=== PATIENT | female | born 1955 | race Caucasian/White ===

== ENCOUNTER 2024-06-28 13:46 | Inpatient (IN) | payer OTHER ==
[2024-06-28 15:44] LABS: HEMATOCRIT 37.7 % (32.4-45.2); HEMOGLOBIN 12.2 GM/dL (10.7-15.3); MCH 28.2 pg (25.7-33.7); MCHC 32.4 g/dl (32.0-36.0); MEAN CELL VOLUME 87.1 fl (80-96); MEAN PLT VOLUME 8.7 fl (7.5-11.1); PLATELET COUNT 286 10^3/uL (134-434); RBC 4.32 M/mm3 (3.60-5.2); RDW 15.7 % (11.6-15.6); VENOUS O2 SATURATION 35.6 % (70-80); VENOUS PCO2 44.7 mmHg (38-52); VENOUS PH 7.442 (7.310-7.410)
[2024-06-28 15:47] LABS: WHITE BLOOD COUNT 37.8 K/mm3 (4.0-10.0)
[2024-06-28 15:52] LABS: INR 1.48 (0.83-1.09); PROTHROMBIN TIME (PATIENT) 16.8 SEC (9.7-13.0)
[2024-06-28 16:12] LABS: POTASSIUM 3.7 mmol/L (3.5-5.1)
[2024-06-28 16:14] LABS: ALBUMIN 2.4 g/dl (3.4-5.0); CALCIUM 9.5 mg/dL (8.5-10.1)
[2024-06-28 16:18] LABS: BILIRUBIN,TOTAL 0.8 mg/dL (0.2-1); CREATININE 1.1 mg/dL (0.55-1.3); TOT PROT 6.1 g/dl (6.4-8.2)
[2024-06-28] MEDS: METOPROLOL TARTRATE 50 MG TABLET (FP) PO SCH (16:50)
[2024-06-28 16:51] LABS: ANISOCYTOSIS 1+; MACROCYTOSIS 0; OVALOCYTE 1+
[2024-06-28] MEDS ORDERED: ACETAMINOPHEN INJECTION 100 ML ONE (17:06)
[2024-06-28] MEDS: ACETAMINOPHEN 1000 MG/100 ML BAG IVPB ONE ×2 (17:15→20:18)
[2024-06-28] MEDS: SODIUM CHLORIDE 0.9% 500 ML INFUS.BAG IV ONE (17:16)
[2024-06-28] MEDS ORDERED: VANCOMYCIN 1 GM PREMIX (F) 1 GM/200 ML BAG ONE (17:43)
[2024-06-28] MEDS: VANCOMYCIN 1 GM PREMIX (F) 1 GM/200 ML BAG IVPB ONE (18:10)
[2024-06-28] MEDS: LACTATED RINGERS SOLUTION 1,000 ML/1,000 ML INFUS.BAG IV SCH (18:10)
[2024-06-28] MEDS ORDERED: PIPERACILLIN/TAZOB 4.5 GM 4.5 GM/100 ML BAG IVPB ONE (19:30)
[2024-06-28] MEDS: PIPERACILLIN/TAZOB 4.5 GM 4.5 GM in DEXTROSE 5%-WATER 100 ML IVPB SCH (19:42)
[2024-06-28] MEDS: METOPROLOL TARTRATE 5 MG/5 ML VIAL IVPUSH ONE (20:10)
[2024-06-29 07:50] LABS: HEMATOCRIT 37.1 % (32.4-45.2); HEMOGLOBIN 12.1 GM/dL (10.7-15.3); MCH 28.7 pg (25.7-33.7); MCHC 32.7 g/dl (32.0-36.0); MEAN PLT VOLUME 8.9 fl (7.5-11.1); PLATELET COUNT 247 10^3/uL (134-434); RBC 4.22 M/mm3 (3.60-5.2); RDW 15.4 % (11.6-15.6)
[2024-06-29 08:00] LABS: WHITE BLOOD COUNT 38.6 K/mm3 (4.0-10.0)
[2024-06-29 08:09] LABS: CALCIUM 9.4 mg/dL (8.5-10.1); POTASSIUM 3.1 mmol/L (3.5-5.1)
[2024-06-29 08:10] LABS: BLOOD UREA NITROGEN 24.9 mg/dL (7-18)
[2024-06-29] MEDS ORDERED: amLODIPine BESYLATE 5 MG TABLET (FP) PO SCH (10:00)
[2024-06-29 10:21] LABS: ANISOCYTOSIS 0; MACROCYTOSIS 0; OVALOCYTE 1+
[2024-06-29] MEDS: APIXABAN 2.5 MG TABLET PO SCH (11:00)
[2024-06-29] MEDS: PIPERACILLIN/TAZOB 4.5 GM 4.5 GM in DEXTROSE 5%-WATER 100 ML IVPB SCH (11:02)
[2024-06-29] MEDS: METOPROLOL TARTRATE 50 MG TABLET (FP) PO SCH (11:02)
[2024-06-29] MEDS: VANCOMYCIN/WATER FOR INJ (PEG) 1,000 MG/200 ML BAG IVPB SCH (11:02)
[2024-06-29] MEDS: NAPH,MB-DB/K PH,MBDB POWDER PACKET PO ONE (11:03)
[2024-06-29] MEDS ORDERED: ALBUTEROL SO4 2.5/IPRATROPIUM 0.5 INH SOL 3 ML VIAL.NEB. NEB PRN (15:33)
[2024-06-29 17:42] LABS: BF WBC & OTHER NUCLEATED CELLS 1356 /mm3
[2024-06-29] MEDS: POTASSIUM CHLORIDE TABS 20 MEQ TABLET.ER (FP) PO ONE ×2 (18:36→18:38)
[2024-06-29] MEDS: LACTATED RINGERS SOLUTION 1,000 ML/1,000 ML INFUS.BAG IV SCH (18:36)
[2024-06-29 20:15] LABS: BODY FLUID MACROPHAGES 9 %; BODY FLUID MESOTHELIAL 2 %; BODY FLUID MONOCYTE 6 %; BODYL FLD EOSINOPHIL 3 %
[2024-06-30 07:44] LABS: BASO % 0.6 % (0-2.0); EOS % 4.4 % (0-4.5); HEMATOCRIT 35.6 % (32.4-45.2); HEMOGLOBIN 11.7 GM/dL (10.7-15.3); MCH 28.8 pg (25.7-33.7); MCHC 32.9 g/dl (32.0-36.0); MEAN CELL VOLUME 87.7 fl (80-96); MONO % 5.4 % (3.8-10.2); NEUT % 87.6 % (42.8-82.8); PLATELET COUNT 224 10^3/uL (134-434); RBC 4.06 M/mm3 (3.60-5.2); RDW 15.6 % (11.6-15.6)
[2024-06-30 07:53] LABS: POTASSIUM 3.5 mmol/L (3.5-5.1)
[2024-06-30 07:57] LABS: CALCIUM 9.1 mg/dL (8.5-10.1); MAGNESIUM 2.1 mg/dL (1.8-2.4)
[2024-06-30 07:58] LABS: BLOOD UREA NITROGEN 17.9 mg/dL (7-18)
[2024-06-30 08:00] LABS: CREATININE 0.8 mg/dL (0.55-1.3)
[2024-06-30 08:01] LABS: PHOSPHOROUS 3.1 mg/dL (2.5-4.9)
[2024-06-30 08:02] LABS: TOT PROT 5.2 g/dl (6.4-8.2)
[2024-06-30 08:07] LABS: BILIRUBIN,TOTAL 0.8 mg/dL (0.2-1)
[2024-06-30 10:37] LABS: ANISOCYTOSIS 1+; MACROCYTOSIS 1+; OVALOCYTE 1+
[2024-06-30 10:42] LABS: WHITE BLOOD COUNT 38.9 K/mm3 (4.0-10.0)
[2024-06-30] MEDS: ACETAMINOPHEN 1000 MG/100 ML BAG IVPB PRN (19:50)
[2024-07-01] MEDS: APIXABAN 2.5 MG TABLET PO SCH (05:36)
[2024-07-01 08:12] LABS: HEMATOCRIT 34.5 % (32.4-45.2); HEMOGLOBIN 10.9 GM/dL (10.7-15.3); MCH 27.9 pg (25.7-33.7); MCHC 31.6 g/dl (32.0-36.0); MEAN CELL VOLUME 88.5 fl (80-96); MEAN PLT VOLUME 9.1 fl (7.5-11.1); PLATELET COUNT 234 10^3/uL (134-434); RDW 15.6 % (11.6-15.6)
[2024-07-01 08:20] LABS: POTASSIUM 3.5 mmol/L (3.5-5.1)
[2024-07-01 08:25] LABS: WHITE BLOOD COUNT 35.7 K/mm3 (4.0-10.0)
[2024-07-01 08:30] LABS: ALBUMIN 1.9 g/dl (3.4-5.0); CALCIUM 9.4 mg/dL (8.5-10.1)
[2024-07-01 08:31] LABS: CREATININE 0.7 mg/dL (0.55-1.3)
[2024-07-01 08:32] LABS: TOT PROT 5.3 g/dl (6.4-8.2)
[2024-07-01 15:10] LABS: BODY FLUID ALBUMIN 1.8 g/dL (Not Estab.)
[2024-07-01] MEDS: ALBUTEROL SO4 2.5/IPRATROPIUM 0.5 INH SOL 3 ML VIAL.NEB. NEB SCH (15:40)
[2024-07-02 07:12] LABS: HEMATOCRIT 35.7 % (32.4-45.2); HEMOGLOBIN 11.1 GM/dL (10.7-15.3); MCH 27.8 pg (25.7-33.7); MCHC 31.2 g/dl (32.0-36.0); MEAN CELL VOLUME 89.1 fl (80-96); MEAN PLT VOLUME 9.5 fl (7.5-11.1); PLATELET COUNT 300 10^3/uL (134-434); RBC 4.01 M/mm3 (3.60-5.2); RDW 15.6 % (11.6-15.6)
[2024-07-02 07:30] LABS: POTASSIUM 3.6 mmol/L (3.5-5.1)
[2024-07-02 07:39] LABS: BLOOD UREA NITROGEN 21.6 mg/dL (7-18)
[2024-07-02 07:44] LABS: CREATININE 0.9 mg/dL (0.55-1.3)
[2024-07-02 07:45] LABS: BILIRUBIN,TOTAL 0.9 mg/dL (0.2-1); TOT PROT 5.6 g/dl (6.4-8.2)
[2024-07-02 09:21] LABS: ANISOCYTOSIS 0; HELMET CELLS 0; HOWELL-JOLLY BODIES 0; MACROCYTOSIS 0; OVALOCYTE 0; ROULEAU 0; SICKELED CELLS 0; TARGET CELLS 0; TEAR DROP CELLS 0; TOXIC GRANULATION 0
[2024-07-02] MEDS ORDERED: RAPID SEQUENCE INTUBATION KIT NR ONE (22:51)
[2024-07-02] MEDS ORDERED: FENTANYL NS IVPB 500 MCG/100 ML BAG IVPB ONE (23:30)
[2024-07-02] MEDS: FENTANYL NS IVPB 500 MCG/100 ML BAG IVPB SCH (23:35)
[2024-07-02] MEDS: DEXMEDETOMIDINE PREMIX 400 MCG/100 ML BAG IVPB SCH (23:35)
[2024-07-03 01:02] LABS: HEMATOCRIT 30.6 % (32.4-45.2); HEMOGLOBIN 9.7 GM/dL (10.7-15.3); MCHC 31.6 g/dl (32.0-36.0); MEAN CELL VOLUME 88.7 fl (80-96); MEAN PLT VOLUME 8.9 fl (7.5-11.1); PLATELET COUNT 244 10^3/uL (134-434); RBC 3.45 M/mm3 (3.60-5.2); RDW 15.7 % (11.6-15.6); WHITE BLOOD COUNT 18.5 K/mm3 (4.0-10.0)
[2024-07-03 01:06] LABS: EPI CELLS >36 /uL (0-25.1); HYALINE CASTS 5 /uL (0-3.1); URINE APPEARANCE TURBID; URINE BILIRUBIN NEGATIVE (NEGATIVE); URINE COLOR YELLOW; URINE GLUCOSE (UA) NEGATIVE (NEGATIVE); URINE KETONE NEGATIVE (NEGATIVE); URINE LEUK ESTERASE NEGATIVE (NEGATIVE); URINE NITRITE NEGATIVE (NEGATIVE); URINE PROTEIN 2+ (NEGATIVE); URINE RBC 14 /uL (0-23.9)
[2024-07-03 01:22] LABS: INR 2.11 (0.83-1.09); PROTHROMBIN TIME (PATIENT) 23.7 SEC (9.7-13.0)
[2024-07-03 01:31] LABS: POTASSIUM 3.7 mmol/L (3.5-5.1)
[2024-07-03 01:34] LABS: ALBUMIN 1.7 g/dl (3.4-5.0); BLOOD UREA NITROGEN 26.1 mg/dL (7-18); CALCIUM 9.5 mg/dL (8.5-10.1); MAGNESIUM 2.4 mg/dL (1.8-2.4)
[2024-07-03 01:37] LABS: CREATININE 0.9 mg/dL (0.55-1.3)
[2024-07-03 01:38] LABS: PHOSPHOROUS 2.8 mg/dL (2.5-4.9)
[2024-07-03 01:39] LABS: BILIRUBIN,TOTAL 0.7 mg/dL (0.2-1); TOT PROT 4.9 g/dl (6.4-8.2)
[2024-07-03 01:43] LABS: ARTERIAL BLD GAS O2 SATURATION 99.4 % (95-98); ARTERIAL BLOOD GAS BASE EXCESS 0.7 mmol/L (-2-2); ARTERIAL BLOOD GAS PO2 201.5 mmHg (80-100); ARTERIAL BLOOD GAS pH 7.392 (7.350-7.450)
[2024-07-03 01:45] LABS: ALLENS TEST POSITIVE
[2024-07-03] MEDS: ROCURONIUM BROMIDE 50 MG/5 ML VIAL IV ONE (01:45)
[2024-07-03] MEDS: ETOMIDATE 40 MG/20 ML VIAL IVPUSH ONE (01:45)
[2024-07-03 01:46] LABS: PT'S TEMP 102.7; VENT MODE A/C; VENT RATE 20
[2024-07-03] MEDS: NOREPINEPHRINE 0.9 % NACL 8 MG/250 ML BAG IVPB SCH (01:46)
[2024-07-03 01:47] LABS: ANISOCYTOSIS 2+; MACROCYTOSIS 0
[2024-07-03] MEDS: OSELTAMIVIR PHOSPHATE 75 MG CAPSULE GT SCH (03:38)
[2024-07-03] MEDS: HYDROCORTISONE SOD SUCCINATE 100 MG/2 ML VIAL IVPUSH SCH (03:38)
[2024-07-03 04:04] LABS: URINE BACTERIA 4.7 /uL (0-1359); URINE WBC 57.6 /uL (0-25.8); YEAST FEW (NEGATIVE)
[2024-07-03] MEDS: VASopressin 40 UNITS/100 ML BAG IV SCH (04:18)
[2024-07-03] MEDS ORDERED: PROPOFOL 1,000,000 MCG/100 ML VIAL ONE (04:36)
[2024-07-03] MEDS: PROPOFOL 1,000,000 MCG/100 ML VIAL IVPB SCH (04:45)
[2024-07-03 07:58] LABS: HEMATOCRIT 33.2 % (32.4-45.2); HEMOGLOBIN 10.7 GM/dL (10.7-15.3); MCH 28.3 pg (25.7-33.7); MCHC 32.1 g/dl (32.0-36.0); MEAN CELL VOLUME 88.2 fl (80-96); MEAN PLT VOLUME 9.3 fl (7.5-11.1); PLATELET COUNT 279 10^3/uL (134-434); RBC 3.77 M/mm3 (3.60-5.2); RDW 15.3 % (11.6-15.6); WHITE BLOOD COUNT 21.2 K/mm3 (4.0-10.0)
[2024-07-03 08:06] LABS: POTASSIUM 3.8 mmol/L (3.5-5.1)
[2024-07-03 08:07] LABS: INR 2.13 (0.83-1.09); PROTHROMBIN TIME (PATIENT) 23.5 SEC (9.7-13.0)
[2024-07-03 08:19] LABS: ALBUMIN 1.8 g/dl (3.4-5.0); CALCIUM 9.9 mg/dL (8.5-10.1)
[2024-07-03 08:20] LABS: BLOOD UREA NITROGEN 27.5 mg/dL (7-18); MAGNESIUM 2.5 mg/dL (1.8-2.4)
[2024-07-03 08:22] LABS: CREATININE 0.9 mg/dL (0.55-1.3); PHOSPHOROUS 2.4 mg/dL (2.5-4.9)
[2024-07-03 08:24] LABS: BILIRUBIN,TOTAL 0.8 mg/dL (0.2-1); TOT PROT 5.4 g/dl (6.4-8.2)
[2024-07-03 10:15] LABS: ANISOCYTOSIS 0; MACROCYTOSIS 0
[2024-07-03] MEDS: MUPIROCIN 2% TOPICAL OINTMENT FOR DECOLONIZATION NS SCH (10:30)
[2024-07-03] MEDS: FLUDROCORTISONE ACETATE 0.1 MG TABLET (FP) NGT SCH (10:30)
[2024-07-03] MEDS: DEXMEDETOMIDINE PREMIX 400 MCG/100 ML BAG IVPB SCH (15:51)
[2024-07-03] MEDS: FENTANYL NS IVPB 500 MCG/100 ML BAG IVPB SCH (18:29)
[2024-07-03] MEDS: PIPERACILLIN/TAZOB 4.5 GM 4.5 GM in DEXTROSE 5%-WATER 100 ML IVPB SCH (18:29)
[2024-07-03] MEDS: ALBUTEROL SO4 2.5/IPRATROPIUM 0.5 INH SOL 3 ML VIAL.NEB. NEB SCH (20:05)
[2024-07-03] MEDS: VANCOMYCIN/WATER FOR INJ (PEG) 1,000 MG/200 ML BAG IVPB SCH (20:42)
[2024-07-03] MEDS: APIXABAN 2.5 MG TABLET PO SCH (22:09)
[2024-07-03] MEDS: CHLORHEXIDINE GLUCONATE 4% CLEANSER FOR DECOLONIZATION TP SCH (22:09)
[2024-07-03] MEDS: METOPROLOL TARTRATE 50 MG TABLET (FP) PO SCH (22:09)
[2024-07-04] MEDS: ACETAMINOPHEN 1000 MG/100 ML BAG IVPB PRN (00:41)
[2024-07-04 07:46] LABS: HEMATOCRIT 32.9 % (32.4-45.2); HEMOGLOBIN 10.3 GM/dL (10.7-15.3); MCH 27.8 pg (25.7-33.7); MCHC 31.2 g/dl (32.0-36.0); MEAN PLT VOLUME 9.4 fl (7.5-11.1); PLATELET COUNT 307 10^3/uL (134-434); RBC 3.69 M/mm3 (3.60-5.2); RDW 15.3 % (11.6-15.6); WHITE BLOOD COUNT 24.6 K/mm3 (4.0-10.0)
[2024-07-04 07:54] LABS: POTASSIUM 3.7 mmol/L (3.5-5.1)
[2024-07-04 08:03] LABS: CALCIUM 10.2 mg/dL (8.5-10.1)
[2024-07-04 08:04] LABS: ALBUMIN 1.8 g/dl (3.4-5.0); BLOOD UREA NITROGEN 27.3 mg/dL (7-18); CREATININE 0.8 mg/dL (0.55-1.3); MAGNESIUM 2.5 mg/dL (1.8-2.4); PHOSPHOROUS 2.3 mg/dL (2.5-4.9)
[2024-07-04 08:06] LABS: BILIRUBIN,TOTAL 0.5 mg/dL (0.2-1); TOT PROT 5.2 g/dl (6.4-8.2)
[2024-07-04] MEDS: POTASSIUM PHOSPHATE 15 MM in SODIUM CHLORIDE 100 ML IVPB ONE (13:00)
[2024-07-04] MEDS: VANCOMYCIN 1 GM PREMIX (F) 1,000 MG/200 ML BAG IVPB SCH (22:23)
[2024-07-05 08:08] LABS: HEMOGLOBIN 10.2 GM/dL (10.7-15.3); MCH 27.6 pg (25.7-33.7); MCHC 31.1 g/dl (32.0-36.0); MEAN CELL VOLUME 88.8 fl (80-96); MEAN PLT VOLUME 9.5 fl (7.5-11.1); PLATELET COUNT 325 10^3/uL (134-434); RBC 3.71 M/mm3 (3.60-5.2); RDW 15.5 % (11.6-15.6)
[2024-07-05 08:11] LABS: POTASSIUM 3.6 mmol/L (3.5-5.1)
[2024-07-05 08:13] LABS: CALCIUM 10.1 mg/dL (8.5-10.1)
[2024-07-05 08:14] LABS: ALBUMIN 1.7 g/dl (3.4-5.0); BLOOD UREA NITROGEN 27.9 mg/dL (7-18); MAGNESIUM 2.3 mg/dL (1.8-2.4)
[2024-07-05 08:17] LABS: CREATININE 0.8 mg/dL (0.55-1.3); PHOSPHOROUS 2.4 mg/dL (2.5-4.9)
[2024-07-05 08:19] LABS: BILIRUBIN,TOTAL 0.5 mg/dL (0.2-1); TOT PROT 5.1 g/dl (6.4-8.2)
[2024-07-05 08:25] LABS: WHITE BLOOD COUNT 33.2 K/mm3 (4.0-10.0)
[2024-07-05] MEDS: HYDROCORTISONE SOD SUCCINATE 100 MG/2 ML VIAL IVPUSH SCH (11:16)
[2024-07-05] MEDS: POTASSIUM PHOSPHATE 30 MM in DEXTROSE 5%-WATER - 500 ML IVPB ONE (18:00)
[2024-07-06 06:53] LABS: POTASSIUM 3.9 mmol/L (3.5-5.1)
[2024-07-06 06:55] LABS: HEMATOCRIT 33.2 % (32.4-45.2); HEMOGLOBIN 10.6 GM/dL (10.7-15.3); MCHC 32.1 g/dl (32.0-36.0); MEAN CELL VOLUME 87.3 fl (80-96); MEAN PLT VOLUME 9.4 fl (7.5-11.1); PLATELET COUNT 285 10^3/uL (134-434); RDW 15.6 % (11.6-15.6)
[2024-07-06 06:57] LABS: CALCIUM 10.6 mg/dL (8.5-10.1)
[2024-07-06 06:58] LABS: ALBUMIN 1.7 g/dl (3.4-5.0); BLOOD UREA NITROGEN 31.4 mg/dL (7-18); MAGNESIUM 2.2 mg/dL (1.8-2.4)
[2024-07-06 06:59] LABS: WHITE BLOOD COUNT 39.5 K/mm3 (4.0-10.0)
[2024-07-06 07:01] LABS: CREATININE 0.8 mg/dL (0.55-1.3); PHOSPHOROUS 3.1 mg/dL (2.5-4.9)
[2024-07-06 07:02] LABS: BILIRUBIN,TOTAL 0.6 mg/dL (0.2-1)
[2024-07-06] MEDS ORDERED: morphine SULFATE 4 MG/ML VIAL IVPUSH PRN (08:14)
[2024-07-06 09:13] LABS: ANISOCYTOSIS 0; MACROCYTOSIS 0
[2024-07-06] MEDS ORDERED: ACETAMINOPHEN INJECTION 100 ML ONE (13:19)
[2024-07-06] MEDS ORDERED: DEXMEDETOMIDINE IN 0.9 % NACL 200 MCG/50 ML EACH IVPB SCH (22:00)
[2024-07-07 06:51] LABS: HEMATOCRIT 34.3 % (32.4-45.2); HEMOGLOBIN 10.6 GM/dL (10.7-15.3); MCH 27.3 pg (25.7-33.7); MCHC 30.8 g/dl (32.0-36.0); MEAN CELL VOLUME 88.5 fl (80-96); PLATELET COUNT 226 10^3/uL (134-434); RBC 3.88 M/mm3 (3.60-5.2); RDW 15.1 % (11.6-15.6)
[2024-07-07 06:59] LABS: WHITE BLOOD COUNT 41.9 K/mm3 (4.0-10.0)
[2024-07-07 07:17] LABS: CALCIUM 11.5 mg/dL (8.5-10.1)
[2024-07-07 07:18] LABS: ALBUMIN 1.6 g/dl (3.4-5.0); BLOOD UREA NITROGEN 43.7 mg/dL (7-18)
[2024-07-07 07:21] LABS: CREATININE 1.3 mg/dL (0.55-1.3)
[2024-07-07 07:22] LABS: BILIRUBIN,TOTAL 0.7 mg/dL (0.2-1)
[2024-07-07 07:23] LABS: TOT PROT 5.1 g/dl (6.4-8.2)
[2024-07-07] MEDS ORDERED: MIDAZOLAM HCL 5 MG/1 ML Single Dose Vial ONE (13:43)
[2024-07-07] MEDS: MIDAZOLAM HCL 5 MG/1 ML Single Dose Vial IVPUSH ONE (14:24)
[2024-07-07] MEDS ORDERED: ACETAMINOPHEN 1000 MG/100 ML BAG IVPB PRN (15:45)
[2024-07-07] MEDS: MEROPENEM-0.9% SODIUM CHLORIDE 1 GM/50 ML BAG IVPB SCH (17:41)
[2024-07-07] MEDS: FENTANYL NS IVPB 500 MCG/100 ML BAG IVPB SCH (20:23)
[2024-07-07] MEDS: PROPOFOL 1,000,000 MCG/100 ML VIAL IVPB SCH (20:24)
[2024-07-07] MEDS: NOREPINEPHRINE BITARTRATE/D5W 8 MG/250 ML BAG IVPB SCH (22:00)
[2024-07-07] MEDS ORDERED: VASopressin 20 UNITS/ML VIAL IV ONE (23:55)
[2024-07-07] MEDS: VASopressin 40 UNITS/100 ML BAG IV SCH (23:57)
[2024-07-08 06:50] LABS: ARTERIAL BLD GAS O2 SATURATION 95.5 % (95-98); ARTERIAL BLOOD GAS BASE EXCESS -3.2 mmol/L (-2-2); ARTERIAL BLOOD GAS PO2 78.9 mmHg (80-100); ARTERIAL BLOOD GAS pH 7.379 (7.350-7.450)
[2024-07-08 07:06] LABS: ALLENS TEST POSITIVE
[2024-07-08 07:07] LABS: VENT MODE AC; VENT RATE 14
[2024-07-08 07:47] LABS: HEMATOCRIT 35.5 % (32.4-45.2); HEMOGLOBIN 10.8 GM/dL (10.7-15.3); MCH 27.3 pg (25.7-33.7); MCHC 30.5 g/dl (32.0-36.0); MEAN CELL VOLUME 89.7 fl (80-96); MEAN PLT VOLUME 10.7 fl (7.5-11.1); PLATELET COUNT 276 10^3/uL (134-434); RBC 3.96 M/mm3 (3.60-5.2); RDW 15.5 % (11.6-15.6)
[2024-07-08 07:55] LABS: WHITE BLOOD COUNT 53.7 K/mm3 (4.0-10.0)
[2024-07-08 08:24] LABS: POTASSIUM 4.5 mmol/L (3.5-5.1)
[2024-07-08 08:30] LABS: ALBUMIN 1.6 g/dl (3.4-5.0)
[2024-07-08 08:31] LABS: CALCIUM 11.7 mg/dL (8.5-10.1)
[2024-07-08 08:32] LABS: BLOOD UREA NITROGEN 71.2 mg/dL (7-18)
[2024-07-08 08:33] LABS: BILIRUBIN,TOTAL 1.3 mg/dL (0.2-1); CREATININE 2.3 mg/dL (0.55-1.3); TOT PROT 5.2 g/dl (6.4-8.2)
[2024-07-08 09:15] LABS: ANISOCYTOSIS 2+; MACROCYTOSIS 2+; OVALOCYTE 1+
[2024-07-08 13:34] VITALS: BMI 29.2
[2024-07-09 06:55] LABS: ARTERIAL BLD GAS O2 SATURATION 94.6 % (95-98); ARTERIAL BLOOD GAS BASE EXCESS -3.3 mmol/L (-2-2); ARTERIAL BLOOD GAS PO2 79.7 mmHg (80-100); ARTERIAL BLOOD GAS pH 7.303 (7.350-7.450)
[2024-07-09 06:57] LABS: ALLENS TEST POSITIVE
[2024-07-09 06:58] LABS: VENT MODE A/C
[2024-07-09 06:59] LABS: VENT RATE 14
[2024-07-09] MEDS: MEROPENEM-0.9% SODIUM CHLORIDE 1 GM/50 ML BAG IVPB SCH (08:01)
[2024-07-09 08:12] LABS: HEMATOCRIT 36.4 % (32.4-45.2); HEMOGLOBIN 11.3 GM/dL (10.7-15.3); MCH 27.6 pg (25.7-33.7); MEAN CELL VOLUME 89.1 fl (80-96); MEAN PLT VOLUME 10.5 fl (7.5-11.1); PLATELET COUNT 290 10^3/uL (134-434); RBC 4.08 M/mm3 (3.60-5.2); RDW 15.9 % (11.6-15.6)
[2024-07-09 08:18] LABS: WHITE BLOOD COUNT 52.3 K/mm3 (4.0-10.0)
[2024-07-09 08:33] LABS: POTASSIUM 5.3 mmol/L (3.5-5.1)
[2024-07-09 08:49] LABS: ALBUMIN 1.8 g/dl (3.4-5.0); BLOOD UREA NITROGEN 94.8 mg/dL (7-18); CALCIUM 11.3 mg/dL (8.5-10.1)
[2024-07-09 08:50] LABS: MAGNESIUM 3.2 mg/dL (1.8-2.4); TOT PROT 5.5 g/dl (6.4-8.2)
[2024-07-09 08:52] LABS: CREATININE 3.3 mg/dL (0.55-1.3)
[2024-07-09 08:53] LABS: PHOSPHOROUS 6.8 mg/dL (2.5-4.9)
[2024-07-09] MEDS: SODIUM ZIRCONIUM CYCLOSILICATE (LOKELMA) 5 GM PACKET PO ONE (09:02)
[2024-07-09] MEDS: SODIUM CHLORIDE 1,000 ML IV SCH ×2 (14:07→16:23)
[2024-07-09] MEDS ORDERED: SODIUM CHLORIDE 1,000 ML IV SCH (14:30)
[2024-07-09] MEDS: CASPOFUNGIN ACETATE 70 MG in SODIUM CHLORIDE 250 ML IVPB ONE (14:35)
[2024-07-09] MEDS: FENTANYL NS IVPB 500 MCG/100 ML BAG IVPB SCH (17:21)
[2024-07-09] MEDS ORDERED: ADENOSINE 6 MG/2 ML VIAL IVPUSH ONE (22:11)
[2024-07-09] MEDS: MEROPENEM-0.9% SODIUM CHLORIDE 500 MG/50 ML BAG IVPB SCH (22:18)
[2024-07-09] MEDS: LIDOCAINE HCL 1%, 10 MG/ML (20ML VIAL) SQ ONE (22:46)
[2024-07-09] MEDS ORDERED: AMIODARONE IN DEXTROSE,ISO-OSM 150 MG/100 ML BAG ONE (23:30)
[2024-07-09] MEDS: AMIODARONE IN DEXTROSE,ISO-OSM 150 MG/100 ML BAG IVPB ONE (23:38)
[2024-07-09] MEDS: AMIODARONE IN DEXTROSE,ISO-OSM 360 MG/200 ML BAG IV SCH (23:50)
[2024-07-10] MEDS ORDERED: AMIODARONE IN DEXTROSE,ISO-OSM 360 MG/200 ML BAG IV SCH (00:05)
[2024-07-10 00:09] LABS: CHLORIDE 105 mmol/L (98-107); POTASSIUM 5.2 mmol/L (3.5-5.1); SODIUM 138 mmol/L (136-145)
[2024-07-10 00:11] LABS: CALCIUM 9.9 mg/dL (8.5-10.1)
[2024-07-10 00:12] LABS: ALBUMIN 1.6 g/dl (3.4-5.0); ANION GAP 10 mmol/L (4-13); CO2 23 mmol/L (21-32); GLUCOSE,RANDOM 177 mg/dL (74-106); MAGNESIUM 2.7 mg/dL (1.8-2.4)
[2024-07-10 00:15] LABS: CREATININE 3.6 mg/dL (0.55-1.3); PHOSPHOROUS 6.9 mg/dL (2.5-4.9); SGOT/AST 101 U/L (15-37); SGPT/ALT 179 U/L (13-61)
[2024-07-10 00:16] LABS: BILIRUBIN,TOTAL 0.8 mg/dL (0.2-1); TOT PROT 4.8 g/dl (6.4-8.2)
[2024-07-10 00:49] LABS: ALK PHOS 377 U/L (45-117); BLOOD UREA NITROGEN 104.8 mg/dL (7-18)
[2024-07-10] MEDS: AMIODARONE IN DEXTROSE,ISO-OSM 360 MG/200 ML BAG IV SCH (05:30)
[2024-07-10 08:03] LABS: HEMOGLOBIN 9.8 GM/dL (10.7-15.3); MCH 27.4 pg (25.7-33.7); MCHC 30.7 g/dl (32.0-36.0); MEAN CELL VOLUME 89.2 fl (80-96); MEAN PLT VOLUME 10.5 fl (7.5-11.1); PLATELET COUNT 294 10^3/uL (134-434); RBC 3.58 M/mm3 (3.60-5.2); RDW 15.6 % (11.6-15.6)
[2024-07-10 08:09] LABS: CHLORIDE 104 mmol/L (98-107); POTASSIUM 5.4 mmol/L (3.5-5.1); SODIUM 137 mmol/L (136-145)
[2024-07-10 08:12] LABS: ANION GAP 11 mmol/L (4-13); CO2 22 mmol/L (21-32); GLUCOSE,RANDOM 135 mg/dL (74-106); MAGNESIUM 2.7 mg/dL (1.8-2.4)
[2024-07-10 08:15] LABS: CREATININE 3.8 mg/dL (0.55-1.3); PHOSPHOROUS 7.2 mg/dL (2.5-4.9)
[2024-07-10 08:20] LABS: BLOOD UREA NITROGEN 111.2 mg/dL (7-18); WHITE BLOOD COUNT 59.7 K/mm3 (4.0-10.0)
[2024-07-10] MEDS: CASPOFUNGIN ACETATE 50 MG in SODIUM CHLORIDE 250 ML IVPB SCH (09:36)
[2024-07-11 06:49] LABS: HEMATOCRIT 32.4 % (32.4-45.2); HEMOGLOBIN 9.8 GM/dL (10.7-15.3); MCHC 30.3 g/dl (32.0-36.0); MEAN CELL VOLUME 89.1 fl (80-96); MEAN PLT VOLUME 10.4 fl (7.5-11.1); PLATELET COUNT 273 10^3/uL (134-434); RBC 3.63 M/mm3 (3.60-5.2); RDW 15.3 % (11.6-15.6)
[2024-07-11 07:21] LABS: WHITE BLOOD COUNT 68.1 K/mm3 (4.0-10.0)
[2024-07-11 07:31] LABS: CHLORIDE 104 mmol/L (98-107); POTASSIUM 5.6 mmol/L (3.5-5.1); SODIUM 138 mmol/L (136-145)
[2024-07-11 07:34] LABS: ALBUMIN 1.7 g/dl (3.4-5.0); ANION GAP 14 mmol/L (4-13); CALCIUM 9.5 mg/dL (8.5-10.1); CO2 20 mmol/L (21-32)
[2024-07-11 07:35] LABS: GLUCOSE,RANDOM 124 mg/dL (74-106); MAGNESIUM 2.5 mg/dL (1.8-2.4)
[2024-07-11 07:38] LABS: CREATININE 4.1 mg/dL (0.55-1.3); SGOT/AST 108 U/L (15-37); SGPT/ALT 125 U/L (13-61)
[2024-07-11 07:40] LABS: BILIRUBIN,TOTAL 0.8 mg/dL (0.2-1); TOT PROT 5.1 g/dl (6.4-8.2)
[2024-07-11 07:42] LABS: ALK PHOS 397 U/L (45-117)
[2024-07-11 07:47] LABS: BLOOD UREA NITROGEN 117.3 mg/dL (7-18)
[2024-07-11 08:20] VITALS: TEMP 98.7
[2024-07-11] MEDS ORDERED: AMIODARONE HCL 150 MG/3 ML VIAL ONE (09:05)
[2024-07-11] MEDS: AMIODARONE HCL 150 MG/3 ML VIAL IVPUSH ONE (09:08)
[2024-07-11 09:16] LABS: ANISOCYTOSIS 0; MACROCYTOSIS 0
[2024-07-11] MEDS ORDERED: MORPHINE SULFATE/0.9% NACL/PF 100 MG/100 ML BAG IVPB SCH (11:45)
[2024-07-11 12:06] VITALS: BP 79/42; PULSE 153; RESP 16
[2024-07-11] MEDS: morphine SULFATE 4 MG/ML VIAL IVPUSH ONE (12:28)
[2024-07-11] MEDS: LORazepam 2 MG/ML SDV VIAL IVPUSH PRN (12:33)
[2024-07-11] MEDS: MORPHINE SULFATE/0.9% NACL/PF 100 MG/100 ML BAG IVPB SCH (12:49)
[2024-07-11] MEDS ORDERED: MORPHINE 100mg/NS INFUSION 100 MG/100 ML MG ONE (12:49)
== END 2024-07-11 13:11 | disposition expired | DRG 870 ==
LOC: JER 13:46 → JERBED 16:06 → J4W 22:36 → JICU 07-02 23:10
PROVIDERS: ADMIT Internal Medicine; ATTEND Internal Medicine Pulmonary Disease
PROC: 0W9B30Z Drainage of Left Pleural Cavity with Drainage Device, Percutaneous Approach (ICD-10-PCS; principal; 2024-06-29)
PROC: 5A1955Z Respiratory Ventilation, Greater than 96 Consecutive Hours (ICD-10-PCS; 2024-07-02)
PROC: 5A1945Z Respiratory Ventilation, 24-96 Consecutive Hours (ICD-10-PCS; 2024-07-02)
PROC: 0BH17EZ Insertion of Endotracheal Airway into Trachea, Via Natural or Artificial Opening (ICD-10-PCS; 2024-07-02)
PROC: 02HV33Z Insertion of Infusion Device into Superior Vena Cava, Percutaneous Approach (ICD-10-PCS; 2024-07-03)
PROC: B548ZZA Ultrasonography of Superior Vena Cava, Guidance (ICD-10-PCS; 2024-07-03)
PROC: 0W9930Z Drainage of Right Pleural Cavity with Drainage Device, Percutaneous Approach (ICD-10-PCS; 2024-07-03)
PROC: 0BH17EZ Insertion of Endotracheal Airway into Trachea, Via Natural or Artificial Opening (ICD-10-PCS; 2024-07-07)
PROC: 03HY32Z Insertion of Monitoring Device into Upper Artery, Percutaneous Approach (ICD-10-PCS; 2024-07-10)
PROC: 4A133B1 Monitoring of Arterial Pressure, Peripheral, Percutaneous Approach (ICD-10-PCS; 2024-07-10)
PROC: 4A133J1 Monitoring of Arterial Pulse, Peripheral, Percutaneous Approach (ICD-10-PCS; 2024-07-10)
DX: A41.9 Sepsis, unspecified organism (principal); J11.00 Influenza due to unidentified influenza virus with unspecified type of pneumonia; J96.01 Acute respiratory failure with hypoxia; R65.21 Severe sepsis with septic shock; J90 Pleural effusion, not elsewhere classified; I24.89 Other forms of acute ischemic heart disease; C78.00 Secondary malignant neoplasm of unspecified lung; D47.Z2 Castleman disease; I48.91 Unspecified atrial fibrillation; E86.0 Dehydration; C50.919 Malignant neoplasm of unspecified site of unspecified female breast; E87.6 Hypokalemia; E27.8 Other specified disorders of adrenal gland; R13.10 Dysphagia, unspecified
CPT/HCPCS: 0241U-QW; 31500; 32557; 36415; 36600; 70460-TC; 71045-TC-FY; 71275-TC; 72170-TC-FY; 72192-TC; 80048; 80053; 81003; 82042; 82150; 82465; 82803; 82945; 82962; 83605; 83615; 83735; 83986; 84100; 84157; 84443; 84478; 84484; 85025; 85027; 85610; 85730; 86850; 86900; 86901; 87040; 87070; 87075; 87086; 87102; 87116; 87205; 87206; 87210; 87481; 88108; 88305-TC; 93005; 93010; 94002; 94640; 97116-GP; 97162-GP; 99285-25; G0480; J0131; J0282; J0637; J3490; Q9967